=== PATIENT | female | born 1990 | race Caucasian/White ===

== ENCOUNTER 2018-04-12 10:33 | Observation (INO) | payer OTHER ==
[~2018-04-12] VITALS: Ht 160 cm; Wt 133.4 kg
[~2018-04-12 10:33] MED LIST: BUPR150CR PO; DIPH25CA PO; HYDR-3516 PO; TRAZ50TA12 PO
[2018-04-12] MEDS ORDERED: POVIDONE IODINE 5% (ANTISEPSIS KIT) 4 APPLICATIONS EACH NARE PRN (11:15)
[2018-04-12] MEDS ORDERED: METOPROLOL TARTRATE 25 MG TAB PO PRN (11:15)
[2018-04-12] MEDS ORDERED: CHLORHEXIDINE GLUCONATE 2 % 1 PACK (2 CLOTHS) TOPICAL PRN (11:15)
[2018-04-12] MEDS ORDERED: SODIUM CHLORID 0.9% 500 ML IV PRN (11:15)
[2018-04-12] MEDS: LACTATED RINGER'S 1000 ML IV PRN (11:40)
[2018-04-12] MEDS ORDERED: APREPITANT 40 MG CAP ONE (11:49)
[2018-04-12 11:58] LABS: BASOPHIL # 0.1 TH/MM3 (0-0.2); BASOPHIL % 0.5 % (0.0-2.0); EOSINOPHIL # 0.2 TH/MM3 (0-0.4); EOSINOPHIL % 1.5 % (0.0-4.0); HEMATOCRIT 33.8 % (35.0-46.0); HEMOGLOBIN 10.9 GM/DL (11.6-15.3); LYMPHOCYTE # 2.6 TH/MM3 (1.0-4.8); MEAN CORPUSCULAR HEMOGLOBIN 24.1 PG (27.0-34.0); MEAN CORPUSCULAR HGB CONC 32.2 % (32.0-36.0); MEAN PLATELET VOLUME 8.7 FL (7.0-11.0); MONO % 8.1 % (0.0-8.0); MONOCYTE # 0.9 TH/MM3 (0-0.9); NEUT % 65.9 % (16.0-70.0); PLATELET COUNT 330 TH/MM3 (150-450); RED BLOOD COUNT 4.51 MIL/MM3 (4.00-5.30); RED CELL DISTRIBUTION WIDTH 15.9 % (11.6-17.2); WHITE BLOOD COUNT 10.6 TH/MM3 (4.0-11.0)
[2018-04-12] MEDS ORDERED: LIDOCAINE HCL 1% PF 5 ML SYRINGE OTHER ONE (12:00)
[2018-04-12] MEDS ORDERED: ONDANSETRON HCL 4 MG/2 ML VIAL IV PUSH ONE (12:00)
[2018-04-12] MEDS ORDERED: PROPOFOL 200 MG/20 ML AMP IV ONE (12:00)
[2018-04-12] MEDS ORDERED: DEXAMETHASONE SOD PHOS 4 MG/ML VIAL IV ONE (12:00)
[2018-04-12] MEDS ORDERED: SUCCINYLCHOLINE CHLORIDE 100 MG/5 ML SYRINGE IV PUSH ONE (12:00)
[2018-04-12] MEDS ORDERED: ARTIFICIAL TEARS OPTH OINT 3.5 APPLIC/3.5 GM TUBO ONE (12:09)
[2018-04-12] MEDS ORDERED: LIDOCAINE 1%/EPINEPHrine 1:100,000 SOLN 20 ML VIAL ONE ×2 (12:20→12:42)
[2018-04-12] MEDS ORDERED: BUPIVACAINE/EPINEPHRINE 0.5% PF 10 ML VIAL ONE (12:20)
[2018-04-12] MEDS ORDERED: FAMOTIDINE 20 MG/2 ML VIAL ONE (12:22)
[2018-04-12] MEDS ORDERED: DO NOT ADM ANY ANTICOAGULANT DRUGS PRN (13:41)
[2018-04-12] MEDS ORDERED: MIDAZOLAM HCL 2 MG/2 ML VIAL ONE (13:47)
[2018-04-12] MEDS ORDERED: *morphine SULFATE 10 MG/ML PERIprocedure ONLY ONE ×3 (13:56→14:29)
--- NOTE | 2018-04-12 13:59 | MR ---
cc: Aries Goodman MD,Carlos Oakes,Ramez Boogie MD DATE: 04/12/2018 PREOPERATIVE DIAGNOSIS: 1. 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 2. Diarrhea. POSTOPERATIVE DIAGNOSIS: 1. 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 2. Diarrhea. PROCEDURE PERFORMED: 1. Colonoscopy with terminal ileoscopy with biopsy of the ileum, right colon and left colon. 2. Drainage of abscess with fistulotomy. SURGEON: Aries Goodman MD ANESTHESIA: General. INDICATIONS: This is a 27-year-old who has had a perirectal abscess drained 5 months ago in [place]. The patient has had persistent draining opening in the left anterior perianal skin. She was examined and found to have a chronic fissure in the anterior position. It is suspected that the process is fistulizing from the fissure. The patient presents for surgical treatment. The patient also has had problems with intermittent diarrhea and right lower quadrant pain. She presents for colonoscopy to rule out inflammatory bowel disease. OPERATIVE TECHNIQUE: The Pentax [id number] colonoscope was introduced from the anus to the cecum without difficulty in the left lateral position with some central abdominal pressure. The valve was intubated, the last 15 cm of terminal ileum was examined. There is lymphoid hyperplasia present, but no evidence of inflammatory bowel disease. A biopsy was obtained in the ileum. The instrument was withdrawn. There was no visible evidence of colitis. Biopsies were obtained in the right and left colon. The patient was repositioned in the left lateral position on the operating stretcher in Trendelenburg. The buttocks were taped. The area was prepped and draped in a sterile fashion. The anal canal was examined. There was an external opening in the left anterior perianal skin approximately 8 cm from the anal verge. The area was probed and the probe passed into a chronic abscess cavity involving the left lateral ischiorectal space. The anal canal was examined with the bivalve retractor. There was a chronic fissure in the anterior position from the dentate line to the anal verge. That area was probed and the fistula opening was identified within the fissure. With simultaneous probing from the internal and external openings, the fistula tract was identified and a probe was passed from the external opening into the anal canal. The anal muscle was then assessed. The fissure was felt to involve 50% of the internal and external sphincter. Fistulotomy was initiated by dividing the anal mucosa and extending the incision into the ischiorectal tissues entering the chronic abscess cavity. The distal border of the muscle was defined. The cavity was curetted and the situation was again assessed. It was felt that a primary fistulotomy could be performed as the muscle division would be in the left anterolateral position and there was felt to be sufficient proximal muscle present. Consideration was given to a cutting [place], but this was not felt to be necessary and would be a less reliable means of healing. The internal and external wounds were too complex for flap repair. The internal opening was within a bed of the 1.5 x 1 cm fissure site. A fistulotomy was then performed. The tract was curetted. A portion of the tract was excised and submitted for biopsy. The redundant skin was excised internally and externally to fully unroof the process. Hemostasis was obtained and the wound was packed with Betadine soaked gauze. The patient tolerated the procedure well. Sponge and needle counts were correct. Blood loss was minimal. MD ALEM Lyon/JONE , 01:33 PM , 01:58 PM DONALD
[2018-04-12] MEDS ORDERED: KETOROLAC TROMETHAMINE 30 MG/ML (IVP) VIAL ONE (14:34)
[2018-04-12] MEDS ORDERED: HYDROmorphone HCL PF 0.5 MG/0.5 ML SYRINGE ONE (15:16)
[2018-04-12 17:02] VITALS: BP 141/66; RESP 19; TEMP 98.2; O2SAT 98
[2018-04-12 20:00] VITALS: BP 134/66; PULSE 110; RESP 16; TEMP 97.9; O2SAT 90
[2018-04-12] MEDS ORDERED: SODIUM CHLORIDE FLUSH PRN IV FLUSH (20:15)
[2018-04-12] MEDS ORDERED: ONDANSETRON HCL 4 MG/2 ML VIAL IV PUSH PRN (22:00)
[2018-04-12] MEDS: ONDANSETRON ODT 4 MG TAB PO PRN (22:00)
[2018-04-12] MEDS: SODIUM CHLORIDE FLUSH BID IV FLUSH SCH (22:01)
[2018-04-12] MEDS: MORPHINE SULFATE 8 MG/ML INJ IV PUSH PRN (22:01)
[2018-04-12] MEDS: ACETAMINOPHEN/HYDROcodone 325 MG/5 MG TAB PO PRN (23:48)
[2018-04-13] VITALS (7 sets, daily range): BP systolic 17–151; BP diastolic 59–100; PULSE 60–98; RESP 16–18; TEMP 97–97.6; O2SAT 68–100
[2018-04-13] MEDS: ACETAMINOPHEN/HYDROcodone 325 MG/5 MG TAB PO PRN ×3 (04:14→12:04)
[2018-04-13] MEDS: ONDANSETRON ODT 4 MG TAB PO PRN ×2 (04:15→12:05)
[2018-04-13] MEDS: MORPHINE SULFATE 8 MG/ML INJ IV PUSH PRN ×5 (05:39→22:21)
[2018-04-13] MEDS: SODIUM CHLORIDE FLUSH BID IV FLUSH SCH ×2 (08:02→21:00)
[2018-04-13] MEDS ORDERED: oxyCODONE/ACETAMINOPHEN 7.5 MG/325 MG TAB PO PRN (16:30)
[2018-04-13] MEDS: KETOROLAC TROMETHAMINE 30 MG/ML (IVP) VIAL IV PUSH PRN (16:33)
[2018-04-13] MEDS: oxyCODONE/ACETAMINOPHEN 7.5 MG/325 MG TAB PO PRN ×2 (16:53→21:19)
[2018-04-13] MEDS: LACTATED RINGER'S 1000 ML IV PRN (17:15)
[2018-04-13] MEDS ORDERED: SODIUM CHLORID 0.9% 500 ML INJ 500 ML IV ONE (17:15)
[2018-04-13] MEDS: D5-LR + KCL 20 MEQ INJ 1,000 ML IV SCH (17:33)
[2018-04-13] MEDS: RESP: ALBUTEROL 2.5 MG/3 ML NEB (SCH) INH (19:46)
[2018-04-14 00:32] VITALS: BP 129/64; PULSE 97; RESP 20; TEMP 97.7; O2SAT 94
[2018-04-14] MEDS: oxyCODONE/ACETAMINOPHEN 7.5 MG/325 MG TAB PO PRN ×6 (01:05→23:44)
[2018-04-14] MEDS: MORPHINE SULFATE 8 MG/ML INJ IV PUSH PRN ×5 (03:40→20:26)
[2018-04-14] MEDS: D5-LR + KCL 20 MEQ INJ 1,000 ML IV SCH ×3 (03:41→23:15)
[2018-04-14 07:11] LABS: AUTOMATED NEUTROPHIL # 4.8 TH/MM3 (1.8-7.7); BASOPHIL # 0.1 TH/MM3 (0-0.2); BASOPHIL % 0.7 % (0.0-2.0); EOSINOPHIL # 0.1 TH/MM3 (0-0.4); EOSINOPHIL % 1.6 % (0.0-4.0); HEMATOCRIT 30.5 % (35.0-46.0); HEMOGLOBIN 9.6 GM/DL (11.6-15.3); LYMPH % 33.7 % (9.0-44.0); LYMPHOCYTE # 2.9 TH/MM3 (1.0-4.8); MEAN CORPUSCULAR HEMOGLOBIN 24.4 PG (27.0-34.0); MEAN CORPUSCULAR HGB CONC 31.7 % (32.0-36.0); MEAN PLATELET VOLUME 8.7 FL (7.0-11.0); MONO % 8.1 % (0.0-8.0); MONOCYTE # 0.7 TH/MM3 (0-0.9); NEUT % 55.9 % (16.0-70.0); PLATELET COUNT 267 TH/MM3 (150-450); RED BLOOD COUNT 3.96 MIL/MM3 (4.00-5.30); RED CELL DISTRIBUTION WIDTH 15.8 % (11.6-17.2); WHITE BLOOD COUNT 8.6 TH/MM3 (4.0-11.0)
[2018-04-14] MEDS: SODIUM CHLORIDE FLUSH BID IV FLUSH SCH ×2 (07:13→21:00)
[2018-04-14 09:02] VITALS: O2SAT 97
[2018-04-14] MEDS: RESP: ALBUTEROL 2.5 MG/3 ML NEB (SCH) INH ×4 (09:02→20:16)
--- NOTE | 2018-04-14 11:25 | RADRPT ---
EXAM DATE: 04/14/2018 11:17 AM EDT AGE/SEX: 27 years / Female INDICATIONS: Lower abdominal pain and cramps CLINICAL DATA: This is the patient's subsequent encounter. Patient reports that signs and symptoms h ave been present for 2 days and indicates a pain score of 9/10. MEDICAL/SURGICAL HISTORY: . rectal abcess . fistulotomy COMPARISON: No prior [place] exams available for comparison. FINDINGS: 2 AP supine views of the abdomen and pelvis were obtained and demonstrate mild gaseous tension the tr ansverse colon. A moderate amount of stool is present in the descending colon. There are several loop s of nondilated air or bowel. There is no evidence of free air or mass effect on the supine study. Th e lung bases are clear. There is a mild to moderate scoliosis of breast and lumbar spine. The bony st ructures are otherwise intact. CONCLUSION: Nonspecific, nonobstructive bowel gas pattern with mild gaseous dilatation of portions of the transve rse colon. Electronically signed by: Rlyand Huston MD 04/14/2018 11:24 AM EDT
--- NOTE | 2018-04-14 11:37 | RADRPT ---
EXAM DATE: 04/14/2018 11:14 AM EDT AGE/SEX: 27 years / Female INDICATIONS: Short of breath CLINICAL DATA: This is the patient's subsequent encounter. Patient reports that signs and symptoms h ave been present for 2 days and indicates a pain score of 0/10. MEDICAL/SURGICAL HISTORY: . rectal abcess . fistulotomy COMPARISON: No prior [place] exams available for comparison. FINDINGS: PA and lateral views of the chest demonstrate the lungs to be symmetrically aerated without evidence of mass, infiltrate or effusion. The cardiomediastinal contours are unremarkable. Osseous structures are intact. CONCLUSION: No acute cardiopulmonary findings. Electronically signed by: Guillermo Hughes MD 04/14/2018 11:35 AM EDT
[2018-04-14 12:00] VITALS: BP 129/67; PULSE 98; RESP 18; TEMP 97.7; O2SAT 91
[2018-04-14] MEDS: KETOROLAC TROMETHAMINE 30 MG/ML (IVP) VIAL IV PUSH PRN (13:21)
[2018-04-14] MEDS: ONDANSETRON ODT 4 MG TAB PO PRN (13:22)
[2018-04-14 16:00] VITALS: BP 113/61; PULSE 92; RESP 18; TEMP 97.9; O2SAT 100
[2018-04-14 16:17] VITALS: O2SAT 97
[2018-04-14 20:00] VITALS: BP 148/66; PULSE 101; RESP 20; TEMP 97.7; O2SAT 99
[2018-04-14] MEDS ORDERED: POLYETHYLENE GLYCOL 17 GM PKG PO PRN (20:45)
[2018-04-15] VITALS (8 sets, daily range): BP systolic 91–143; BP diastolic 50–66; PULSE 75–111; RESP 18–20; TEMP 97.6–97.9; O2SAT 95–100
[2018-04-15] MEDS: MORPHINE SULFATE 8 MG/ML INJ IV PUSH PRN ×2 (00:55→12:20)
[2018-04-15 03:52] LABS: BASOPHIL # 0.1 TH/MM3 (0-0.2); BASOPHIL % 0.9 % (0.0-2.0); EOSINOPHIL # 0.2 TH/MM3 (0-0.4); EOSINOPHIL % 2.8 % (0.0-4.0); HEMOGLOBIN 9.5 GM/DL (11.6-15.3); LYMPH % 37.3 % (9.0-44.0); MEAN CELL VOLUME 76.5 FL (80.0-100.0); MEAN CORPUSCULAR HEMOGLOBIN 24.2 PG (27.0-34.0); MEAN CORPUSCULAR HGB CONC 31.6 % (32.0-36.0); MEAN PLATELET VOLUME 8.8 FL (7.0-11.0); MONO % 8.6 % (0.0-8.0); MONOCYTE # 0.7 TH/MM3 (0-0.9); NEUT % 50.4 % (16.0-70.0); PLATELET COUNT 270 TH/MM3 (150-450); RED BLOOD COUNT 3.92 MIL/MM3 (4.00-5.30); RED CELL DISTRIBUTION WIDTH 16.1 % (11.6-17.2)
[2018-04-15 04:12] LABS: BICARBONATE 28.1 MEQ/L (21.0-32.0); CALCIUM 8.1 MG/DL (8.5-10.1); CREATININE 0.74 MG/DL (0.50-1.00)
[2018-04-15] MEDS: oxyCODONE/ACETAMINOPHEN 7.5 MG/325 MG TAB PO PRN ×5 (05:56→21:59)
[2018-04-15] MEDS: SODIUM CHLORIDE FLUSH BID IV FLUSH SCH ×2 (07:50→21:00)
[2018-04-15] MEDS: D5-LR + KCL 20 MEQ INJ 1,000 ML IV SCH ×2 (07:58→09:01)
--- NOTE | 2018-04-15 08:26 | HHI.PR ---
Subjective Remarks C/R Surg POD afebrile, VSS arias placed - little residual No BM min PO Objective - Vital Signs Date Time Temp Pulse Resp B/P (MAP) Pulse Ox O2 Delivery O2 Flow Rate FiO2 04/15/18 00:46 97.9 97 18 125/61 (82) 95 04/14/18 16:17 Nasal Cannula 2.00 04/14/18 09:02 21 Result Diagram: 04/15/18 0333 04/15/18 0333 Objective Remarks PE alert Rectal - wound sclean, dry, little serous drainage A/P Assessment and Plan Imp: Kumar arias sitz bath/shower laxative Michael Gilman MD Apr 15, 2018 08:26
[2018-04-15] MEDS: RESP: ALBUTEROL 2.5 MG/3 ML NEB (SCH) INH ×4 (10:11→20:17)
[2018-04-15] MEDS: KETOROLAC TROMETHAMINE 30 MG/ML (IVP) VIAL IV PUSH PRN ×2 (16:26→23:06)
[2018-04-15] MEDS: ONDANSETRON ODT 4 MG TAB PO PRN (16:46)
[2018-04-16] VITALS: BP 162/77; PULSE 104; RESP 20; TEMP 98.1; O2SAT 96
[2018-04-16] MEDS: oxyCODONE/ACETAMINOPHEN 7.5 MG/325 MG TAB PO PRN ×2 (02:39→08:12)
[2018-04-16] MEDS: D5-LR + KCL 20 MEQ INJ 1,000 ML IV SCH (06:28)
[2018-04-16] MEDS: SODIUM CHLORIDE FLUSH BID IV FLUSH SCH ×2 (07:22→22:09)
[2018-04-16 08:00] VITALS: BP 100/55; PULSE 87; RESP 20; TEMP 98; O2SAT 100
[2018-04-16] MEDS: KETOROLAC TROMETHAMINE 30 MG/ML (IVP) VIAL IV PUSH PRN ×2 (10:37→16:17)
[2018-04-16] MEDS: RESP: ALBUTEROL 2.5 MG/3 ML NEB (SCH) INH ×3 (11:55→20:41)
[2018-04-16 12:00] VITALS: BP 112/59; PULSE 94; RESP 20; TEMP 98.1; O2SAT 100
[2018-04-16] MEDS: SILVER SULFADIAZINE/LIDOCAINE CREAM 60 GM JAR TOPICAL SCH ×3 (12:10→19:31)
--- NOTE | 2018-04-16 12:21 | HHI.PR ---
Subjective Remarks C/R Surg POD afebrile, VSS arias placed - little residual, DC'd No BM min PO Objective - Vital Signs Date Time Temp Pulse Resp B/P (MAP) Pulse Ox O2 Delivery O2 Flow Rate FiO2 04/16/18 08:00 98.0 87 20 100/55 (70) 100 04/15/18 20:17 21 04/15/18 10:12 Nasal Cannula 1.00 Result Diagram: 04/15/18 0333 04/15/18 0333 Objective Remarks PE alert Rectal - wounds clean, dry, little serous drainage A/P Assessment and Plan Imp: Dc arias sitz bath/shower laxative DC plans Michael Gilman MD Apr 16, 2018 12:21
[2018-04-16] MEDS: oxyCODONE/ACETAMINOPHEN 10 MG/325 MG TAB PO PRN ×2 (13:07→19:29)
[2018-04-16] MEDS: ONDANSETRON ODT 4 MG TAB PO PRN (15:50)
[2018-04-16 16:00] VITALS: BP 148/65; PULSE 98; RESP 20; TEMP 98.6; O2SAT 97
[2018-04-16 20:00] VITALS: BP 113/68; PULSE 95; RESP 18; TEMP 98.4; O2SAT 92
[2018-04-17] VITALS: BP 125/58; PULSE 88; RESP 18; TEMP 98; O2SAT 90
[2018-04-17] MEDS: oxyCODONE/ACETAMINOPHEN 10 MG/325 MG TAB PO PRN ×3 (03:22→15:26)
[2018-04-17 08:00] VITALS: BP 119/58; PULSE 92; RESP 20; TEMP 98.1; O2SAT 100
[2018-04-17] MEDS: RESP: ALBUTEROL 2.5 MG/3 ML NEB (SCH) INH ×2 (08:38→11:18)
[2018-04-17] MEDS: SODIUM CHLORIDE FLUSH BID IV FLUSH SCH (08:40)
[2018-04-17] MEDS: KETOROLAC TROMETHAMINE 30 MG/ML (IVP) VIAL IV PUSH PRN (08:40)
[2018-04-17] MEDS: SILVER SULFADIAZINE/LIDOCAINE CREAM 60 GM JAR TOPICAL SCH ×2 (08:40→11:52)
[2018-04-17] MEDS: D5-LR + KCL 20 MEQ INJ 1,000 ML IV SCH (08:40)
[2018-04-17 08:41] VITALS: O2SAT 99
[2018-04-17] MEDS ORDERED: POLYETHYLENE GLYCOL 17 GM PKG PO SCH (09:00)
--- NOTE | 2018-04-17 11:53 | HHI.FF ---
Face to Face Verification Diagnosis: (1) Anal fistula Physical Therapy Order: Improve ambulation, Strength and gait training Home Health Nursing Order: Wound care and dressing changes Nursing assessment with vital signs Instructions: clean in shower anal area, dress with gauze BID I have seen patient Cherie Eugene on 04/17/18. My clinical findings support the need for the requested home health care services because: Ltd mobility - disease progression Limited ability to care for self I certify that my clinical findings support that this patient is homebound because: Post-op weakness Unsteady gait/balance Unable to use public transportation Aries Goodman MD Apr 17, 2018 11:53
[2018-04-17] MEDS ORDERED: WALKER WHEELS/F1 MIS (11:55)
[2018-04-17] MEDS ORDERED: OXYC1TAB36 PO (11:59)
[2018-04-17 12:00] VITALS: BP_SYST 114; BP_SYST 142; BP_SYST 144; BP_DIAS 77; BP_DIAS 79; BP_DIAS 85; PULSE 101; RESP 22; TEMP 98.2; O2SAT 99
== END 2018-04-17 15:34 | disposition home or self-care (01) ==
LOC: HSDC 10:33 → N07A 16:25
PROVIDERS: ADMIT Colon & Rectal Surgery; ATTEND Colon & Rectal Surgery
DX: K61.1 Rectal abscess (principal); R19.7 Diarrhea, unspecified; R06.02 Shortness of breath
CPT/HCPCS: 00902; 45380; 46060; 71046; 74019; 80048; 85025; 88304; 88305; 94640; 94664; 96361; 96374; 96375; 96376; G0378; G8987; G8988; J0330; J1100; J1170; J1885; J2250; J2270; J2405; J3010; J3480; J7040; J7120; J7613; J8501